=== PATIENT | male | born 1940 | race American Indian/Alaskan Native ===

== ENCOUNTER 2021-02-04 08:08 | Outpatient (CLI) | payer MEDICARE, BC | END 2021-02-04 08:09 | disposition home or self-care (01) | LOC: CSHULT 08:08 | PROVIDERS: ATTEND Internal Medicine Gastroenterology | DX: B18.1 Chronic viral hepatitis B without delta-agent (principal) | CPT/HCPCS: 76705 ==

== ENCOUNTER 2021-09-25 08:34 | Outpatient (CLI) | payer MEDICARE, BC | END 2021-09-25 08:35 | disposition home or self-care (01) | LOC: CSHULT 08:34 | PROVIDERS: ATTEND Internal Medicine Gastroenterology | DX: B18.1 Chronic viral hepatitis B without delta-agent (principal) | CPT/HCPCS: 76705 ==

== ENCOUNTER 2022-11-13 08:36 | Outpatient (CLI) | payer MEDICARE, BC | END 2022-11-13 08:37 | disposition home or self-care (01) | LOC: CSHULT 08:36 | PROVIDERS: ATTEND Internal Medicine Gastroenterology | DX: B18.1 Chronic viral hepatitis B without delta-agent (principal) | CPT/HCPCS: 76705 ==

== ENCOUNTER 2022-11-28 09:05 | Outpatient (CLI) | payer MEDICARE, BC ==
[2022-11-28] MEDS ORDERED: Iopamidol 300 61% 100 ML VIAL FS ONE (11:52)
== END 2022-11-28 09:06 | disposition home or self-care (01) ==
LOC: CSHCT 09:05
PROVIDERS: ATTEND Internal Medicine Gastroenterology
DX: B18.1 Chronic viral hepatitis B without delta-agent (principal)
CPT/HCPCS: 74160; 82565; Q9967

== ENCOUNTER 2023-11-03 08:30 | Outpatient (CLI) | payer MEDICARE | END 2023-11-03 08:31 | disposition home or self-care (01) | LOC: CSHULT 08:30 | PROVIDERS: ATTEND Internal Medicine Gastroenterology | DX: B18.1 Chronic viral hepatitis B without delta-agent (principal) | CPT/HCPCS: 76705 ==